=== PATIENT | male | born 2000 | race Caucasian/White ===

== ENCOUNTER 2023-02-11 18:46 | Outpatient (REF) | payer BC, SELFPAY ==
[2023-02-13 20:21] LABS: Chlamydia Result Negative (Negative); GC Result Negative (Negative)
== END 2023-02-11 18:47 | disposition home or self-care (01) ==
LOC: LBN 18:46
PROVIDERS: Visit Provider Physician Assistant
DX: Z11.3 Encounter for screening for infections with a predominantly sexual mode of transmission (principal)
CPT/HCPCS: 87491; 87591